=== PATIENT | male | born 1975 | race Hispanic/Latino ===

== ENCOUNTER 2021-01-21 17:19 | Inpatient (IN) | payer OTHER ==
[~2021-01-21] VITALS: Ht 180.3 cm; Wt 98.6 kg
[2021-01-21 17:35] VITALS: BP 125/70
[2021-01-21 18:10] VITALS: BP 125/70
[2021-01-21] MEDS ORDERED: IBUPROFEN 800 MG TAB ONE (18:12)
[2021-01-21] MEDS ORDERED: ACETAMINOPHEN WITH CODEINE 1 TAB TAB ONE (18:13)
[2021-01-21 18:28] LABS: ABG BASE EXCESS 1.3 mmol/L (-2.0-3.0); ABG HCO3 25.1 mmol/L (21.0-28.0); ABG OXYGEN SATURATION 88.8 % (95.0-99.0); ABG PCO2 37 mmHg (35-48)
[2021-01-21] MEDS ORDERED: IBUPROFEN 800 MG TAB PO ONE (18:30)
[2021-01-21] MEDS ORDERED: AZITHROMYCIN 250 MG TABLET PO ONE (18:30)
[2021-01-21] MEDS ORDERED: ACETAMINOPHEN WITH CODEINE 1 TAB TAB PO ONE (18:30)
[2021-01-21] MEDS ORDERED: CEFTRIAXONE 1G VIAL IVP ONE (18:30)
[2021-01-21] MEDS ORDERED: ALBUTEROL INHALER 90MCG/INH IH PRN (18:30)
[2021-01-21 19:01] LABS: EOSINOPHILS % (AUTO) 1.7 % (0.0-8.0); HEMATOCRIT 41.3 % (42-54); LYMPHOCYTES % (AUTO) 7.8 % (21.0-51.0); MEAN CORPUSCULAR HEMOGLOBIN 31.7 pg (27.0-33.0); MEAN CORPUSCULAR HGB CONC 34.9 g/dL (32.0-36.0); NEUTROPHILS % (AUTO) 86.4 % (40.0-77.0); PLATELET COUNT (AUTO) 105 K/uL (130-400); RED BLOOD CELL COUNT(AUTO) 4.54 MIL/uL (4.50-6.20); WHITE BLOOD COUNT (AUTO) 7.2 K/uL (4.8-10.8)
[2021-01-21 19:12] LABS: CREATININE 0.8 mg/dL (0.5-1.5); POTASSIUM 3.6 mmol/L (3.5-5.1)
[2021-01-21 19:16] LABS: BILIRUBIN,TOTAL 0.3 mg/dL (0.2-1.0)
[2021-01-21 19:21] LABS: B-TYPE NATRIURETIC PEPTIDE < 5 pg/mL (0-100)
[2021-01-21] MEDS ORDERED: ERGOCALCIFEROL (VITAMIN D2) 50,000 UNIT CAPSULE PO ONE (20:30)
[2021-01-21] MEDS ORDERED: NITROGLYCERIN 0.4 MG SL TAB SL PRN (20:30)
[2021-01-21] MEDS ORDERED: ACETAMINOPHEN 325 MG TAB PO PRN ×2 (20:30)
[2021-01-21 20:32] LABS: INR 0.94 (0.85-1.15); PROTHROMBIN TIME 10.3 SEC (9.6-11.6)
[2021-01-21 20:33] LABS: PARTIAL THROMBOPLASTIN TIME 32.9 SEC (26.3-35.5)
[2021-01-21 20:37] LABS: CREATINE KINASE, TOTAL 62 U/L (21-232); LACTATE DEHYDROGENASE 290 U/L (81-234); MYOGLOBIN 36 ng/mL (10-92); TROPONIN I < 0.04 ng/mL (0.00-0.06)
[2021-01-21] MEDS ORDERED: CEFTRIAXONE 1G VIAL ONE (21:09)
[2021-01-21] MEDS ORDERED: AZITHROMYCIN 500MG+NS 250ML 250 ML IV ONE (21:09)
[2021-01-21] MEDS ORDERED: IOHEXOL-350 75 ML VIAL IV ONE (21:23)
[2021-01-21] MEDS: FAMOTIDINE 20MG TAB PO SCH (21:28)
[2021-01-21] MEDS: DEXAMETHASONE SOD PHOSPHATE 4 MG/ML 1ML VIAL IVP SCH (21:28)
[2021-01-21] MEDS: ACETYLCYSTEINE 600 MG CAPSULE PO SCH (21:28)
[2021-01-21] MEDS: ALBUTEROL INHALER 90MCG/INH IH SCH (21:29)
[2021-01-21 23:59] VITALS: BP 111/61
[2021-01-22] VITALS (8 sets, daily range): BP systolic 112–135; BP diastolic 54–75
[2021-01-22] MEDS: ALBUTEROL INHALER 90MCG/INH IH SCH ×4 (01:29→13:57)
[2021-01-22 06:24] LABS: BASOPHILS % (AUTO) 0.2 % (0.0-5.0); EOSINOPHILS % (AUTO) 3.5 % (0.0-8.0); HEMATOCRIT 42.3 % (42-54); LYMPHOCYTES % (AUTO) 14.2 % (21.0-51.0); MEAN CORPUSCULAR HEMOGLOBIN 32.2 pg (27.0-33.0); MEAN CORPUSCULAR HGB CONC 34.8 g/dL (32.0-36.0); MEAN CORPUSCULAR VOLUME 92.8 fL (79-99); MONOCYTES % (AUTO) 4.6 % (3.0-13.0); PLATELET COUNT (AUTO) 117 K/uL (130-400); RED BLOOD CELL COUNT(AUTO) 4.56 MIL/uL (4.50-6.20); RED CELL DISTRIBUTION WIDTH 12.2 % (11.0-15.5); WHITE BLOOD COUNT (AUTO) 6.1 K/uL (4.8-10.8)
[2021-01-22 06:44] LABS: ALBUMIN 2.9 g/dL (3.5-5.0); BILIRUBIN,TOTAL 0.3 mg/dL (0.2-1.0); CREATININE 0.8 mg/dL (0.5-1.5); POTASSIUM 4.1 mmol/L (3.5-5.1); TOTAL PROTEIN, SERUM 7.1 g/dL (6.0-8.3)
[2021-01-22] MEDS: CEFTRIAXONE 1G VIAL IV SCH (08:15)
[2021-01-22] MEDS: FAMOTIDINE 20MG TAB PO SCH ×2 (08:15→21:21)
[2021-01-22] MEDS: ASCORBIC ACID 500 MG TAB PO SCH (08:16)
[2021-01-22] MEDS: ZINC SULFATE 220 CAPSULE PO SCH (08:16)
[2021-01-22] MEDS: ACETYLCYSTEINE 600 MG CAPSULE PO SCH ×2 (08:16→21:21)
[2021-01-22] MEDS ORDERED: AZITHROMYCIN 500MG VIAL IVPB SCH (09:00)
[2021-01-22] MEDS: 0.9% NACL 250ML IVPB SCH (10:29)
[2021-01-22] MEDS: AZITHROMYCIN 500MG+NS 250ML 250 ML IV ONE (10:30)
[2021-01-22] MEDS: AZITHROMYCIN 500MG+NS 250ML IV SCH (10:30)
[2021-01-22] MEDS ORDERED: COMPOUND IV REFRIGERATED 1 EACH IVSOLN MISC PRN (16:00)
[2021-01-22] MEDS ORDERED: REMDESIVIR (EUA) 520 200 MG in 0.9% NACL 250ML 250 ML IV ONE (16:00)
[2021-01-22] MEDS ORDERED: PHARMACY COMMUNICATION MISC SCH ×2 (16:00→18:30)
[2021-01-22] MEDS ORDERED: ALBUTEROL INHALER 90MCG/INH IH PRN (18:30)
[2021-01-22] MEDS: DEXAMETHASONE SOD PHOSPHATE 4 MG/ML 1ML VIAL IVP SCH (21:22)
[2021-01-22] MEDS: ONDANSETRON 4MG INJ IV PRN (21:35)
[2021-01-23 03:40] VITALS: BP 122/68
[2021-01-23 04:27] LABS: BASOPHILS % (AUTO) 0.1 % (0.0-5.0); EOSINOPHILS % (AUTO) 1.8 % (0.0-8.0); HEMATOCRIT 42.1 % (42-54); LYMPHOCYTES % (AUTO) 7.3 % (21.0-51.0); MEAN CORPUSCULAR HEMOGLOBIN 31.9 pg (27.0-33.0); MEAN CORPUSCULAR HGB CONC 34.7 g/dL (32.0-36.0); MEAN CORPUSCULAR VOLUME 91.9 fL (79-99); MONOCYTES % (AUTO) 5.1 % (3.0-13.0); NEUTROPHILS % (AUTO) 85.2 % (40.0-77.0); PLATELET COUNT (AUTO) 147 K/uL (130-400); RED BLOOD CELL COUNT(AUTO) 4.58 MIL/uL (4.50-6.20); RED CELL DISTRIBUTION WIDTH 12.1 % (11.0-15.5); WHITE BLOOD COUNT (AUTO) 8.8 K/uL (4.8-10.8)
[2021-01-23 04:50] LABS: HEMOGLOBIN A1C 5.7 % (4.0-6.0)
[2021-01-23 05:56] LABS: ALBUMIN 2.9 g/dL (3.5-5.0); BILIRUBIN,TOTAL 0.3 mg/dL (0.2-1.0); CREATININE 0.7 mg/dL (0.5-1.5); POTASSIUM 4.6 mmol/L (3.5-5.1); TOTAL PROTEIN, SERUM 6.5 g/dL (6.0-8.3)
[2021-01-23] MEDS: REMDESIVIR LABS MISC SCH (06:00)
[2021-01-23] MEDS: FAMOTIDINE 20MG TAB PO SCH ×2 (07:55→19:21)
[2021-01-23] MEDS: ACETYLCYSTEINE 600 MG CAPSULE PO SCH (07:56)
[2021-01-23] MEDS: ASCORBIC ACID 500 MG TAB PO SCH (07:56)
[2021-01-23] MEDS: ZINC SULFATE 220 CAPSULE PO SCH (07:57)
[2021-01-23] MEDS: ENOXAPARIN SODIUM 40 MG/0.4 ML SYRINGE SQ SCH (07:57)
[2021-01-23] MEDS: CEFTRIAXONE 1G VIAL IV SCH (07:58)
[2021-01-23] MEDS: 0.9% NACL 250ML IVPB SCH (07:58)
[2021-01-23 08:00] VITALS: BP 127/64
[2021-01-23] MEDS: AZITHROMYCIN 500MG+NS 250ML IV SCH (10:03)
[2021-01-23 12:00] VITALS: BP 122/71
[2021-01-23] MEDS: REMDESIVIR (EUA) 520 100 MG in 0.9% NACL 250ML 250 ML IV SCH (15:20)
[2021-01-23 16:00] VITALS: BP 143/87
[2021-01-23 20:58] VITALS: BP 150/80
[2021-01-24] VITALS (7 sets, daily range): BP systolic 116–137; BP diastolic 50–80
[2021-01-24 04:46] LABS: BASOPHILS % (AUTO) 0.1 % (0.0-5.0); HEMATOCRIT 41.1 % (42-54); LYMPHOCYTES % (AUTO) 9.4 % (21.0-51.0); MEAN CORPUSCULAR HEMOGLOBIN 31.7 pg (27.0-33.0); MEAN CORPUSCULAR HGB CONC 34.3 g/dL (32.0-36.0); MEAN CORPUSCULAR VOLUME 92.4 fL (79-99); MONOCYTES % (AUTO) 7.1 % (3.0-13.0); NEUTROPHILS % (AUTO) 82.7 % (40.0-77.0); PLATELET COUNT (AUTO) 168 K/uL (130-400); RED BLOOD CELL COUNT(AUTO) 4.45 MIL/uL (4.50-6.20); RED CELL DISTRIBUTION WIDTH 12.1 % (11.0-15.5)
[2021-01-24 05:06] LABS: ALBUMIN 2.5 g/dL (3.5-5.0); BILIRUBIN,TOTAL 0.4 mg/dL (0.2-1.0); CREATININE 0.7 mg/dL (0.5-1.5); CRP QUANTITATIVE 49.4 mg/L (0.00-9.0); POTASSIUM 3.8 mmol/L (3.5-5.1); TOTAL PROTEIN, SERUM 6.6 g/dL (6.0-8.3)
[2021-01-24 05:50] LABS: ERYTHROCYTE SEDIMENTATION RATE 23 MM/HR (0-15)
[2021-01-24] MEDS: REMDESIVIR LABS MISC SCH (06:00)
[2021-01-24] MEDS: CEFTRIAXONE 1G VIAL IV SCH (07:59)
[2021-01-24] MEDS: FAMOTIDINE 20MG TAB PO SCH ×2 (07:59→20:18)
[2021-01-24] MEDS: ASCORBIC ACID 500 MG TAB PO SCH (07:59)
[2021-01-24] MEDS: DEXAMETHASONE 4 MG TAB PO SCH (07:59)
[2021-01-24] MEDS: ZINC SULFATE 220 CAPSULE PO SCH (08:00)
[2021-01-24] MEDS: ENOXAPARIN SODIUM 40 MG/0.4 ML SYRINGE SQ SCH (08:03)
[2021-01-24] MEDS: 0.9% NACL 250ML IVPB SCH (09:20)
[2021-01-24] MEDS: AZITHROMYCIN 500MG+NS 250ML IV SCH (11:17)
[2021-01-24] MEDS: REMDESIVIR (EUA) 520 100 MG in 0.9% NACL 250ML 250 ML IV SCH (16:37)
[2021-01-24] MEDS: BUSPIRONE HCL 5 MG TABLET PO SCH (20:18)
[2021-01-25 03:00] VITALS: BP 116/72
[2021-01-25] MEDS: REMDESIVIR LABS MISC SCH (05:26)
[2021-01-25 07:25] VITALS: BP 111/63
[2021-01-25] MEDS: ENOXAPARIN SODIUM 40 MG/0.4 ML SYRINGE SQ SCH (08:58)
[2021-01-25] MEDS: DEXAMETHASONE 4 MG TAB PO SCH (08:59)
[2021-01-25] MEDS: ASCORBIC ACID 500 MG TAB PO SCH (08:59)
[2021-01-25] MEDS: FAMOTIDINE 20MG TAB PO SCH ×2 (08:59→20:47)
[2021-01-25] MEDS: ZINC SULFATE 220 CAPSULE PO SCH (08:59)
[2021-01-25] MEDS: BUSPIRONE HCL 5 MG TABLET PO SCH ×2 (09:00→20:47)
[2021-01-25] MEDS: CEFTRIAXONE 1G VIAL IV SCH (09:00)
[2021-01-25] MEDS: 0.9% NACL 250ML IVPB SCH (09:02)
[2021-01-25] MEDS: AZITHROMYCIN 500MG+NS 250ML IV SCH (10:15)
[2021-01-25 12:00] VITALS: BP 118/68
[2021-01-25] MEDS: REMDESIVIR (EUA) 520 100 MG in 0.9% NACL 250ML 250 ML IV SCH (16:21)
[2021-01-25 16:49] VITALS: BP 128/60
[2021-01-25] MEDS: ONDANSETRON 4MG INJ IV PRN (20:47)
[2021-01-25 20:53] VITALS: BP 129/55
[2021-01-26] VITALS (7 sets, daily range): BP systolic 107–146; BP diastolic 54–77
[2021-01-26 04:33] LABS: BASOPHILS % (AUTO) 0.3 % (0.0-5.0); HEMATOCRIT 40.9 % (42-54); LYMPHOCYTES % (AUTO) 10.1 % (21.0-51.0); MEAN CORPUSCULAR HEMOGLOBIN 32.1 pg (27.0-33.0); MEAN CORPUSCULAR HGB CONC 35.5 g/dL (32.0-36.0); MEAN CORPUSCULAR VOLUME 90.5 fL (79-99); MONOCYTES % (AUTO) 7.7 % (3.0-13.0); NEUTROPHILS % (AUTO) 79.7 % (40.0-77.0); PLATELET COUNT (AUTO) 268 K/uL (130-400); RED BLOOD CELL COUNT(AUTO) 4.52 MIL/uL (4.50-6.20); RED CELL DISTRIBUTION WIDTH 11.9 % (11.0-15.5); WHITE BLOOD COUNT (AUTO) 15.8 K/uL (4.8-10.8)
[2021-01-26 04:51] LABS: ALBUMIN 2.6 g/dL (3.5-5.0); BILIRUBIN,TOTAL 0.4 mg/dL (0.2-1.0); CREATININE 0.7 mg/dL (0.5-1.5); CRP QUANTITATIVE 33.6 mg/L (0.00-9.0); MAGNESIUM 2.2 mg/dL (1.80-2.40); POTASSIUM 3.9 mmol/L (3.5-5.1); TOTAL PROTEIN, SERUM 6.4 g/dL (6.0-8.3)
[2021-01-26] MEDS: REMDESIVIR LABS MISC SCH (05:54)
[2021-01-26] MEDS: FAMOTIDINE 20MG TAB PO SCH ×2 (08:32→21:16)
[2021-01-26] MEDS: BUSPIRONE HCL 5 MG TABLET PO SCH (08:33)
[2021-01-26] MEDS: ENOXAPARIN SODIUM 40 MG/0.4 ML SYRINGE SQ SCH (08:33)
[2021-01-26] MEDS: CEFTRIAXONE 1G VIAL IV SCH (08:33)
[2021-01-26] MEDS ORDERED: NACL NASAL SPRAY 120 SPRAY/BOTTLE NS PRN (09:00)
[2021-01-26] MEDS: DEXAMETHASONE SOD PHOSPHATE 4 MG/ML 1ML VIAL IVP SCH (09:28)
[2021-01-26] MEDS: AZITHROMYCIN 500MG+NS 250ML IV SCH (10:01)
[2021-01-26] MEDS: REMDESIVIR (EUA) 520 100 MG in 0.9% NACL 250ML 250 ML IV SCH (15:21)
[2021-01-27 04:13] VITALS: BP 127/61
[2021-01-27] MEDS: REMDESIVIR LABS MISC SCH (06:00)
[2021-01-27] MEDS: DEXAMETHASONE SOD PHOSPHATE 4 MG/ML 1ML VIAL IVP SCH (08:54)
[2021-01-27] MEDS: ENOXAPARIN SODIUM 40 MG/0.4 ML SYRINGE SQ SCH (08:54)
[2021-01-27] MEDS: FAMOTIDINE 20MG TAB PO SCH ×2 (08:54→21:41)
[2021-01-27 11:05] VITALS: BP 117/72
[2021-01-27] MEDS ORDERED: DEXA6TAB PO (15:27)
[2021-01-27] MEDS ORDERED: SODI104S3 NS (15:27)
[2021-01-27] MEDS ORDERED: APIX2.5T PO (15:27)
[2021-01-27 19:42] VITALS: BP 126/68
[2021-01-27 23:25] VITALS: BP 130/64
[2021-01-28 03:15] VITALS: BP 128/62
[2021-01-28 05:04] LABS: BASOPHILS % (AUTO) 0.5 % (0.0-5.0); EOSINOPHILS % (AUTO) 0.3 % (0.0-8.0); HEMATOCRIT 41.9 % (42-54); LYMPHOCYTES % (AUTO) 9.3 % (21.0-51.0); MEAN CORPUSCULAR HEMOGLOBIN 31.3 pg (27.0-33.0); MEAN CORPUSCULAR HGB CONC 34.4 g/dL (32.0-36.0); MEAN CORPUSCULAR VOLUME 91.1 fL (79-99); MONOCYTES % (AUTO) 6.6 % (3.0-13.0); NEUTROPHILS % (AUTO) 77.9 % (40.0-77.0); PLATELET COUNT (AUTO) 340 K/uL (130-400); RED CELL DISTRIBUTION WIDTH 11.9 % (11.0-15.5); WHITE BLOOD COUNT (AUTO) 14.7 K/uL (4.8-10.8)
[2021-01-28 05:23] LABS: ALBUMIN 2.6 g/dL (3.5-5.0); BILIRUBIN,TOTAL 0.6 mg/dL (0.2-1.0); CREATININE 0.7 mg/dL (0.5-1.5); POTASSIUM 4.4 mmol/L (3.5-5.1)
[2021-01-28 07:00] VITALS: BP 109/48
[2021-01-28] MEDS: FAMOTIDINE 20MG TAB PO SCH (08:32)
[2021-01-28] MEDS: DEXAMETHASONE SOD PHOSPHATE 4 MG/ML 1ML VIAL IVP SCH (08:33)
[2021-01-28] MEDS: ENOXAPARIN SODIUM 40 MG/0.4 ML SYRINGE SQ SCH (08:35)
[2021-01-28 08:39] VITALS: BP 109/48
[2021-01-28] MEDS ORDERED: DEXAMETHASONE 4 MG TAB PO SCH (09:00)
[2021-01-28 12:10] VITALS: BP 101/57
[2021-01-28 16:29] VITALS: BP 113/64
== END 2021-01-28 17:13 | disposition home or self-care (01) | DRG 177 ==
LOC: EDH 17:19 → EDHIP 17:20 → 2BH 01-22 00:34
PROVIDERS: ADMIT Internal Medicine; ATTEND Internal Medicine
PROC: XW033E5 Introduction of Remdesivir Anti-infective into Peripheral Vein, Percutaneous Approach, New Technology Group 5 (ICD-10-PCS; principal; 2021-01-22)
DX: U07.1 COVID-19 (principal); J12.82 Pneumonia due to coronavirus disease 2019; J96.01 Acute respiratory failure with hypoxia; R65.20 Severe sepsis without septic shock; A41.9 Sepsis, unspecified organism; D68.59 Other primary thrombophilia; D69.6 Thrombocytopenia, unspecified; E66.9 Obesity, unspecified; D72.810 Lymphocytopenia; R74.02 Elevation of levels of lactic acid dehydrogenase [LDH]; Z79.01 Long term (current) use of anticoagulants; Z68.30 Body mass index [BMI] 30.0-30.9, adult
CPT/HCPCS: 36415; 36600; 71045; 71275; 80053; 82550; 82728; 82803; 82948; 83036; 83605; 83615; 83735; 83874; 83880; 84145; 84484; 85025; 85378; 85610; 85651; 85730; 86140; 87040; 87071; 87205; 87635; 87804; 87880; 93005; 94760; G0378; J0456; J0696; J1100; J1650; J2405; J7050; J8540; Q9967